=== PATIENT | female | born 1970 | race Caucasian/White ===

== ENCOUNTER 2024-05-24 08:46 | Day surgery (SDC) | payer BC ==
[~2024-05-24 08:46] MED LIST: Sodium Chloride 0.9% 10 ML Syringe FLUSH PRN; Sodium Chloride 0.9% 2.5 ML Syringe FLUSH PRN; Sodium Chloride 0.9% 20 ML SDV IV PRN
[2024-05-24] MEDS: Lactated Ringers 1,000 ML IV SCH (10:07)
[2024-05-24] MEDS ORDERED: Lidocaine 2% 5 ML SDV ONE (11:59)
[2024-05-24] MEDS ORDERED: Propofol 200 MG/20 ML SDV ONE ×3 (11:59→12:21)
[2024-05-24 14:47] VITALS: BP 102/53; PULSE 74
== END 2024-05-24 13:20 | disposition home or self-care (01) ==
LOC: MW.SDS 08:46
PROVIDERS: ATTEND Surgery
DX: Z12.11 Encounter for screening for malignant neoplasm of colon (principal); D17.5 Benign lipomatous neoplasm of intra-abdominal organs; I10 Essential (primary) hypertension; E78.00 Pure hypercholesterolemia, unspecified; F32.A Depression, unspecified; E66.01 Morbid (severe) obesity due to excess calories; Z79.899 Other long term (current) drug therapy; Z88.8 Allergy status to other drugs, medicaments and biological substances
CPT/HCPCS: 45378; 81025; J2704; J7120; J3490